=== PATIENT | male | born 1955 | race African-American/Black ===

== ENCOUNTER 2021-07-25 08:15 | Day surgery (SDC) | payer BC ==
[2021-07-25 08:31] VITALS: BMI 25.2
[2021-07-25] MEDS ORDERED: PROPOFOL 20 ML ONE ×4 (10:01)
[2021-07-25 10:46] VITALS: TEMP 96.8
[2021-07-25 11:18] VITALS: BP 118/66; PULSE 56
== END 2021-07-25 11:50 | disposition home or self-care (01) ==
LOC: FASU-ENDO 08:15
PROVIDERS: ATTEND Internal Medicine Gastroenterology
PROC: 0DBL8ZX Excision of Transverse Colon, Via Natural or Artificial Opening Endoscopic, Diagnostic (ICD-10-PCS; principal; 2021-07-25 10:03)
DX: Z12.11 Encounter for screening for malignant neoplasm of colon (principal); D12.3 Benign neoplasm of transverse colon
CPT/HCPCS: 88305-TC